=== PATIENT | female | born 1935 | race Caucasian/White ===

== ENCOUNTER → 2016-09-13 | Day surgery (SDC) | payer MEDICARE, BC ==
[~2016-09-13] MED LIST: AMLODIPINE BESYL5 MG PO; ASPIRIN PO; AVALIDE 300-12.1 TAB PO; BENICAR HCT 40-1 TA2 PO; COUMADIN PO; FISH OIL 1,0001 CAP PO; LASIX PO; LIPITOR PO; LOPRESSOR PO; LOSARTAN POTASS50 MG PO; POTASSIUM CHLO20 ME1 PO; PRILOSEC PO; SYNTHROID PO; VITAMIN D1000 UNIT PO; VITAMIN D2000 UNIT PO
--- NOTE | ~2016-09-13 | OR ---
Unit #: [id number] #: [id number] Patient: MARYLOU CASTELLANO [id number] [address] [place], [place] [address] [id number] MR#: [id number] NAME: MARYLOU CASTELLANO. ROOM: Date of Procedure: 09/13/2016 Admission Date: 09/13/2016 Surgeon: Oliverio Ash M.D. : 1935 Attending Physician: Oliverio Ash M.D. Referring Physician: Oliverio Ash M.D. Primary Care Physician: Aakash Sage M.D. OPERATIVE REPORT JOB NOTE: CC: [facility], DR. PARDEEP LARRY PREOPERATIVE DIAGNOSES Back pain, radiculopathy, sacroiliac joint dysfunction, lumbar facet disease, lumbar disk disease, spondylolisthesis. POSTOPERATIVE DIAGNOSES Back pain, radiculopathy, sacroiliac joint dysfunction, lumbar facet disease, lumbar disk disease, spondylolisthesis. PROCEDURE PERFORMED Diagnostic and therapeutic right sacroiliac joint injection with intravenous sedation and fluoroscopic guidance for needle localization. INDICATIONS FOR PROCEDURE The patient is an 81-year-old female, who has had problems about 3 years now following a fall. She has not settle with conservative treatment. Workup demonstrated multilevel multifactorial abnormalities, none appears to be this solitary reason for her right-sided back, buttock, hip, and leg complaints. Request is to trial of diagnostic and therapeutic right sacroiliac joint injection. We are going to proceed with that today. The patient and her son will see how she does with the effect of the local anesthetic and longer term effect from the steroid. If she does not get good effect today from the local anesthetic, we will look towards a trial of lumbar facet injections and would consider a trial of epidurals as well based on the multilevel multifactorial moderate intraspinal canal changes. Risks and benefits involved have fully discussed with the patient as the treatment plan. DESCRIPTION OF PROCEDURE The patient was placed in a prone position. Standard monitors were applied. 1 mg of Versed was given for sedation and anxiolysis, which was adequate. Vital signs remained stable. Sterile prep and drape then of the sacral area was performed. Fluoroscopy was used to identify the right sacroiliac joint. The skin overlying this was localized with 1% lidocaine. A 22-gauge Quincke point spinal needle was then advanced with fluoroscopic guidance to bring the needle tip to within the edge of the right sacroiliac joint. After this was confirmed with fluoroscopy and radiographic contrast, a dose of 80 mg of Depo-Medrol and 4 mL of 0.125% bupivacaine were deposited. The patient tolerated this part of procedure well and was discharged to the recovery room in stable condition. Unit #: [id number] #: [id number] Patient: MARYLOU CASTELLANO Dictated by... Jw Rhodes/andrzej TD: 09/14/2016 02:33 JOB #: [id number] OPERATIVE REPORT Page 1 of 1 X Oliverio Ash MD X PROCEDURE OPERATIVE NOTE
== END | disposition home or self-care (01) ==
LOC: CCSC 10:13
DX: M53.3 Sacrococcygeal disorders, not elsewhere classified (principal); M43.16 Spondylolisthesis, lumbar region; M51.16 Intervertebral disc disorders with radiculopathy, lumbar region; M47.26 Other spondylosis with radiculopathy, lumbar region; K21.9 Gastro-esophageal reflux disease without esophagitis; I10 Essential (primary) hypertension; I48.91 Unspecified atrial fibrillation; Z79.01 Long term (current) use of anticoagulants
CPT/HCPCS: J1040; J2250

== ENCOUNTER → 2016-11-24 | Outpatient (CLI) | payer MEDICARE, BC ==
[2016-11-24 11:44] LABS: BASOPHIL% 0.9 % (0-2.5); EOSINOPHIL# 0.3 X10e3 (0-0.7); EOSINOPHIL% 6.8 % (0.0-7.0); HEMATOCRIT 35.4 % (35.0-45.0); HEMOGLOBIN 11.7 gm/dL (12.0-16.0); LYMPHOCYTE# 0.9 X10e3 (1.0-3.5); LYMPHOCYTE% 17.6 % (17.0-45.0); MEAN CELL VOLUME 86.1 FL (83-96); MEAN CORPUSCULAR HEMOGLOBIN 28.6 PG (28-34); MEAN CORPUSCULAR HGB CONC 33.2 g/dL (30-36); MEAN PLATELET VOLUME 8.5 FL (6.5-11.5); MONOCYTE# 0.5 X10e3 (0-1.0); MONOCYTE% 8.9 % (3.0-12.0); NEUTROPHIL# 3.4 X10e3 (1.5-7.1); NEUTROPHIL% 65.8 % (40-75); PLATELET COUNT 164 X10e3 (140-420); RED BLOOD COUNT 4.11 X10e (3.90-5.30); RED CELL DISTRIBUTION WIDTH 15.9 % (11.0-15.5); WHITE BLOOD COUNT 5.1 X10e3 (4.0-10.5)
[2016-11-24 11:53] LABS: DIFF IND NO; URINE APPEARANCE CLEAR; URINE BILIRUBIN NEG (NEG); URINE BLOOD NEG (NEG); URINE COLOR YELLOW; URINE GLUCOSE NEG (NORM); URINE KETONE NEG (NEG); URINE LEUKOCYTE ESTERASE TRACE (NEG); URINE NITRATE NEG (NEG); URINE PH 5.5 (5-8); URINE PROTEIN NEG (NEG); URINE UROBILINOGEN 0.2 MG/DL (NORM)
[2016-11-24 11:54] LABS: MICRO INDICATED? YES
[2016-11-24 11:59] LABS: URINE BACTERIA NEG (NEG); URINE RBC 0-2 /[HPF] (0-2); URINE SQUAMOUS EPITHELIAL CELL OCCAS /[HPF]
[2016-11-24 12:02] LABS: BILIRUBIN,TOTAL 0.6 mg/dL (0.2-2.0); BUN/CREATININE RATIO 14.7; CALCIUM SERUM 8.8 mg/dL (8.4-10.2); CREATININE SERUM 1.7 mg/dL (0.6-1.4); GLOM FILT RATE Estimated 27.8 mL/min (>60); POTASSIUM 4.3 mmol/L (3.5-5.1); PROTEIN TOTAL SERUM 6.5 g/dL (6.0-8.3)
[2016-11-24 16:05] LABS: CREATININE,RANDOM URINE 92 mg/dL; TOTAL PROTEIN,RANDOM URINE <10 mg/dl (<10)
== END | disposition home or self-care (01) ==
LOC: SLAB 11:29
PROVIDERS: Internal Medicine Nephrology
DX: N18.3 Chronic kidney disease, stage 3 (moderate) (principal)
CPT/HCPCS: 36415; 80053; 81003; 82570; 84156; 85025

== ENCOUNTER → 2017-03-09 | Outpatient (CLI) | payer MEDICARE, BC ==
[2017-03-09 10:46] LABS: HEMATOCRIT 36.8 % (35.0-45.0); HEMOGLOBIN 12.1 gm/dL (12.0-16.0); MEAN CELL VOLUME 86.3 FL (83-96); MEAN CORPUSCULAR HEMOGLOBIN 28.4 PG (28-34); MEAN PLATELET VOLUME 8.3 FL (6.5-11.5); RED BLOOD COUNT 4.26 X10e (3.90-5.30); RED CELL DISTRIBUTION WIDTH 17.2 % (11.0-15.5); WHITE BLOOD COUNT 5.1 X10e3 (4.0-10.5)
[2017-03-09 11:07] LABS: URINE APPEARANCE CLEAR; URINE BILIRUBIN NEG (NEG); URINE BLOOD NEG (NEG); URINE COLOR YELLOW; URINE GLUCOSE NEG (NORM); URINE KETONE NEG (NEG); URINE LEUKOCYTE ESTERASE NEG (NEG); URINE NITRATE NEG (NEG); URINE PH 5.5 (5-8); URINE PROTEIN NEG (NEG); URINE UROBILINOGEN 0.2 MG/DL (NORM)
[2017-03-09 11:08] LABS: MICRO INDICATED? NO
[2017-03-09 11:19] LABS: ALBUMIN SERUM 4.4 g/dL (3.5-5.0); BILIRUBIN,TOTAL 0.7 mg/dL (0.2-2.0); BUN/CREATININE RATIO 14.61; CALCIUM SERUM 8.7 mg/dL (8.4-10.2); CREATININE SERUM 1.3 mg/dL (0.6-1.4); GLOM FILT RATE Estimated 38.2 mL/min (>60); POTASSIUM 4.3 mmol/L (3.5-5.1); PROTEIN TOTAL SERUM 6.7 g/dL (6.0-8.3)
[2017-03-09 14:49] LABS: CREATININE,RANDOM URINE 31 mg/dL; TOTAL PROTEIN,RANDOM URINE <10 mg/dl (<10)
== END | disposition home or self-care (01) ==
LOC: SLAB 10:32
PROVIDERS: Internal Medicine Nephrology
DX: N18.3 Chronic kidney disease, stage 3 (moderate) (principal)
CPT/HCPCS: 36415; 80053; 81003; 82570; 84156; 85027